=== PATIENT | male | born 1950 | race Caucasian/White ===

== ENCOUNTER 2017-12-16 11:21 | Day surgery (SDC) | payer MEDICARE, OTHER ==
[2017-12-14 14:35] VITALS: BMI 23.6
[~2017-12-16 11:21] MED LIST: LACTATED RINGERS 1,000 ML IV SCH
[2017-12-16 11:50] VITALS: RESP 16; TEMP 98.4
[2017-12-16] MEDS ORDERED: LIDOCAINE 1% INJ 10MG/ML (20 ML MDV) ONE (12:39)
[2017-12-16] MEDS ORDERED: PROPOFOL 10 MG/ML 20 ML VIAL IV ONE (12:39)
--- NOTE | 2017-12-16 13:27 | P.PCN ---
Date of Procedure: 12/16/17 Procedure(s) Performed: Procedures: 1. Esophagogastroduodenoscopy and biopsy. 2. Total colonoscopy. Preoperative diagnosis: Epigastric pain and screening colonoscopy. Postoperative diagnosis: 1. Hiatal hernia and abnormal segment in the distal esophagus that may represent neoplasia, multiple biopsies obtained. 2. Antral gastritis. 3. Left-sided diverticulosis of the colon with no evidence of acute diverticulitis, strictures, significant polyps or cancer. Preparation: HalfLytely prep. Sedation: Was provided by anesthesia. Brief clinical history: The patient is a 67-year-old male who is scheduled for this evaluation because of family history of colon cancer in his father. This would be the patient's first colonoscopy. In addition, he has been experiencing epigastric pain, mostly postprandial, for the last month or so. He may have lost 4 or 5 pounds during that period of time. Does not correlate dysphagia. Denies bleeding. Procedure: With the patient on his left lateral decubitus position and after informed consent and adequate sedation, I passed the Olympus-GIF 160 video upper endoscope through the cricopharyngeus down the esophagus. Around the 32 cm from the incisors and extending for another 5 cm or so, the esophagus appeared abnormal with nodular, friable appearance, almost circumferentially, without impeding the advancement of the endoscope. No obvious ulcerations. The segment terminates at the GE junction then the endoscope is advanced into a 2 cm hiatal hernia and on to the rest of the stomach. The stomach showed some mottling and erythema in the antrum but no other abnormalities including any abnormality and the retroflex view in the cardia. Pyloric channel did not show any ulcers. Duodenal bulb, post bulbar area and descending duodenum showed minimal erythema. I obtained biopsies from the duodenum, antrum and the distal esophagus then the endoscope was withdrawn and I proceeded with the colonoscopy. Perianal area did not show any fissures or fistulas. There were no masses felt on digital rectal examination. The Olympus CFQ 160L video colonoscope was then inserted in the rectum and the usual fashion and advanced to the cecum. There were several diverticular orifices seen scattered on the left side with no evidence of acute diverticulitis or strictures. The mucosa appeared healthy. No polyps or tumors were seen. I retroflexed the endoscope in the rectum before the endoscope was withdrawn. The patient tolerated the procedure well. Plan: I summarized the findings to the patient. Will await biopsy results and make further plans based on his course and biopsy results. I will keep you updated on his progress.
[2017-12-16 13:48] VITALS: BP 114/79; PULSE 68
== END 2017-12-16 14:05 | disposition home or self-care (01) ==
LOC: ORWHC2ENDO 11:21
DX: C15.9 Malignant neoplasm of esophagus, unspecified (principal); K29.50 Unspecified chronic gastritis without bleeding; K44.9 Diaphragmatic hernia without obstruction or gangrene; K29.80 Duodenitis without bleeding; K57.30 Diverticulosis of large intestine without perforation or abscess without bleeding; K21.9 Gastro-esophageal reflux disease without esophagitis; N40.0 Benign prostatic hyperplasia without lower urinary tract symptoms; F17.290 Nicotine dependence, other tobacco product, uncomplicated; Z80.0 Family history of malignant neoplasm of digestive organs; M19.90 Unspecified osteoarthritis, unspecified site; Z79.899 Other long term (current) drug therapy
CPT/HCPCS: 88305; 45378; 43239; J2001; J2704; 88341; 88342

== ENCOUNTER → 2018-01-15 | Outpatient (CLI) | payer MEDICARE, OTHER ==
--- NOTE | 2018-01-17 08:26 | PE ---
EXAMINATION TYPE: PET CT fusion skull to thigh DATE OF EXAM: 01/15/2018 COMPARISON: NONE HISTORY: Esophageal cancer, initial staging study. Positive recent biopsy suspected. TECHNIQUE: Following the intravenous administration of 11.505 mCi of F-18 FDG, whole body images are performed from the skull base to the midthigh. Images are reviewed on the computer in the coronal, axial, and sagittal planes. Reconstructed rotating images are created on independent workstation and reviewed on the computer. A noncontrast CT is performed in conjunction with the PET scan. SCAN: Initial Scan FINDINGS: SKULL BASE AND NECK: No suspicious hypermetabolic uptake is seen. CHEST, MEDIASTINUM, AND HILAR REGION: Corresponding to patient history there is moderate to severe co ncentric wall thickening in the distal esophagus beginning near axial image 101 subcarinal level at l evel of left atrium extending inferiorly almost to level of diaphragmatic hiatus axial image 116, max SUV is. Length of tumor is roughly 5 to 6 cm. There is suspicious adjacent paraesophageal adenopathy , for reference right posterior paraesophageal lymph node measures 1.3 x 0.8 cm axial image 113, no d efinitive abnormal hypermetabolic uptake is present. No additional areas of abnormal hypermetabolic uptake are seen in the thorax. ABDOMEN AND PELVIS: No suspicious hypermetabolic uptake is present. OSSEOUS STRUCTURES: No suspicious hypermetabolic uptake is seen. OTHER CT: There is mild to moderate underlying emphysematous change with scattered bleb formation in the upper lobes. There is dependent atelectasis in the bases. Coronary artery calcification is seen which is noted marker for coronary artery disease. Diverticula are seen most prominent in the sigmoid colon. There is moderate atherosclerotic change of the infrarenal abdominal aorta extending into pelvic bran ch vessels. Prostate gland is enlarged in size bulging on bladder base, underlying BPH is suspected. There are bilateral pars defects L5 level. There is grade 1 anterolisthesis of L5 on S1. Advanced dis c space narrowing at this level is present. There is moderate to severe joint space loss in both hips . There is degenerative change in both shoulders, right worse than left. IMPRESSION: Biopsy-proven malignancy distal esophagus is identified, lesion is completely above diaph ragm. There is nonspecific adjacent prominent but a metabolic lymph node. No metastatic disease is ev ident.
== END | disposition home or self-care (01) ==
LOC: RADPETMAIN 12:24
PROVIDERS: ATTEND Internal Medicine Hematology & Oncology
DX: C15.5 Malignant neoplasm of lower third of esophagus (principal)
CPT/HCPCS: 78815; A9552

== ENCOUNTER → 2018-04-30 | Outpatient (CLI) | payer MEDICARE, OTHER ==
--- NOTE | 2018-05-02 10:16 | PE ---
Nuclear medicine PET/CT HISTORY: Esophageal carcinoma Patient received 13.7 mCi F-18 FDG. Delayed scanning was performed from the skull base to the mid thi ghs. correlation to prior nuclear medicine PET/CT 01/15/2018 Findings: Neck and chest: There is no evident cervical adenopathy. No mediastinal adenopathy. At the level of the distal esophagus at the right lung base medially some mild hypermetabolic uptake is pres ent corresponding to some areas of bronchial wall thickening and consolidation, prominent interstitia l bands, SUV 4.2. Emphysematous changes are present within the right lung which are indeterminate. S cattered foci of groundglass opacity are present within the lungs without associated uptake axial rusty ge 106, 108 in the right middle lobe and right upper lobe. Abdomen pelvis: No suspicious hypermetabolic uptake. No retroperitoneal adenopathy. Osseous structures are within normal limits. Impression: Improvement in abnormal uptake as compared to prior exam. Findings in the right lung base medially could be due to post radiation change, indeterminate foci of groundglass opacity within the right middle and upper lobes were seen on prior exam and are of questionable clinical significance, follow-up recommended.
== END | disposition home or self-care (01) ==
LOC: RADPETMAIN 11:14
PROVIDERS: ATTEND Radiology Radiation Oncology
DX: R91.8 Other nonspecific abnormal finding of lung field (principal); C15.5 Malignant neoplasm of lower third of esophagus; Z92.3 Personal history of irradiation
CPT/HCPCS: 78815; A9552

== ENCOUNTER → 2019-01-10 | Outpatient (CLI) | payer MEDICARE, OTHER ==
[2019-01-10 11:02] LABS: Blood Urea Nitrogen 15 mg/dL (9-20)
--- NOTE | 2019-01-10 14:42 | CT ---
EXAMINATION TYPE: CT ChestAbdPelvis w con DATE OF EXAM: 01/10/2019 COMPARISON: PET CT 04/30/2018 HISTORY: 68-year-old male Follow up esophageal CA TECHNIQUE: Contiguous axial scanning of the chest, abdomen, and pelvis performed with IV Contrast, pa tient injected with 100 mL of Isovue 300. Delayed images through the kidneys were obtained. Coronal/s agittal reconstructions performed. The technologist notes that the patient was unable to bring arms above the head or tolerate full oral prep. CT DLP: 586.1 mGycm Automated exposure control for dose reduction was used. FINDINGS: CHEST: Heart size without pericardial effusion. Coronary vessel calcifications are present and are remarkabl e for coronary artery disease. Aortic root is ectatic at 3.9 cm. Mild atelectatic arch calcifications and conventional arch vessel b ranching anatomy. Descending thoracic aorta is mildly tortuous. Mildly enlarged caliber to the main right and left pulmonary artery is a 2.5 and 2.9 cm, respectively , suggesting underlying pulmonary arterial hypertension. No thoracic lymphadenopathy by CT size criteria. Moderate centrilobular emphysema. No consolidation or pleural effusion. Some mild posterior basilar g roundglass, probably atelectasis. ABDOMEN: Postsurgical changes of esophagectomy and gastric pull-through procedure. No focal liver lesion. Portal venous system is patent. No biliary ductal dilatation. Gallbladder, kidneys, spleen, and pancreas appear within normal limits. Low-density thinning of the bilateral adrenal glands similar to prior. Moderate atherosclerotic calcifications infrarenal abdominal aorta and iliac arteries. Ectatic distal left common iliac artery at 1.6 cm. No dilated small bowel, free fluid, or free air. Oral contrast has progressed to the cecum. There is moderate stool in the ascending colon. Remainder of the colon is relatively collapsed. Mild sigmoid a nd lower descending colonic diverticulosis. No pericolonic inflammatory change. No mesenteric or retroperitoneal lymphadenopathy identified. Pelvis: Bladder is urine distended. Prostate gland is enlarged measuring 5.9 cm wide. No abnormal fluid colle ction in the pelvis or pelvic lymphadenopathy. Bones: Mild degenerative changes of the hips. Degenerative changes left greater than right SI joints. Bilate ral L5 pars defects with grade 2 anterolisthesis at L5-S1. No osseous destructive process. IMPRESSION: 1. Status post esophagectomy with gastric pull-through procedure. No suspicious lymphadenopathy or ma ss to suggest recurrent or metastatic disease. 2. COPD with moderate emphysema. Pulmonary arterial hypertension. 3. Mild distal colonic diverticulosis without evidence for acute diverticulitis. 4. Prostatomegaly (5.9 cm wide). 5. Bilateral L5 pars defects with grade 2 anterolisthesis at L5-S1.
== END ==
LOC: RADCTMAIN 10:20
PROVIDERS: ATTEND Internal Medicine Hematology & Oncology
DX: Z03.89 Encounter for observation for other suspected diseases and conditions ruled out (principal); J43.9 Emphysema, unspecified; I27.21 Secondary pulmonary arterial hypertension; K57.30 Diverticulosis of large intestine without perforation or abscess without bleeding; N40.0 Benign prostatic hyperplasia without lower urinary tract symptoms; M43.17 Spondylolisthesis, lumbosacral region
CPT/HCPCS: 82565; 84520; 71260; 74177; 36415; Q9967

== ENCOUNTER → 2019-05-09 | Outpatient (CLI) | payer MEDICARE, OTHER ==
[2019-05-09 10:58] LABS: African American GFR (CKD) >90 (>60 ml/min/1.73 sqM); Blood Urea Nitrogen 17 mg/dL (9-20)
--- NOTE | 2019-05-09 15:33 | CT ---
EXAMINATION TYPE: CT soft tissue neck w con DATE OF EXAM: 05/09/2019 COMPARISON: 01/10/2019 and 04/30/2018 HISTORY: 68-year-old male Follow up esophageal ca TECHNIQUE: Contiguous axial scanning of the soft tissues of the neck performed with IV Contrast, clint ent injected with 100 mL of Isovue 300. Coronal/sagittal reconstructions performed. CT DLP: 239.7 mGycm Automated exposure control for dose reduction was used. FINDINGS: Visualized intracranial structures, orbits and globes, mastoid air cells appear clear. Scattered mild mucosal thickening ethmoid air cells. Nasopharynx is clear. There is a 1.0 cm rounded nodule within the left lacunar space and smaller 5 mm nodule along the righ t parasagittal vallecular space. Direct visualization is recommended. Otherwise, oropharynx is clear. Epiglottis and prevertebral soft tissues otherwise normal. The glottic and subglottic structures as well as the tracheal column appear clear. Visualized upper lungs dictated separately. The thyroid and submandibular glands are satisfactory. Mild atrophy of the parotid glands. No cervical lymphadenopathy seen. Mild to moderate disc/degenerative change from C4 through C7 levels. IMPRESSION: 1. 1 CM ROUND NODULE WITHIN THE LEFT VALLECULAR SPACE AND SMALLER 5 MM NODULE RIGHT PARASAGITTAL VALL ECULAR SPACE. MUCOSAL RETENTION CYST. DIRECT VISUALIZATION RECOMMENDED TO EXCLUDE MORE AGGRESSIVE MUC OSAL LESIONS. 2. NO CERVICAL LYMPHADENOPATHY OR MASS OTHERWISE SEEN.
--- NOTE | 2019-05-09 15:55 | CT ---
EXAMINATION TYPE: CT ChestAbdPelvis w con DATE OF EXAM: 05/09/2019 COMPARISON: 01/10/2019 HISTORY: 68-year-old male Follow up esophageal ca TECHNIQUE: Contiguous axial scanning of the chest, abdomen, and pelvis performed with IV Contrast, pa tient injected with 100 mL of Isovue 300. Delayed images through the kidneys were obtained. Coronal/s agittal reconstructions performed. CT DLP: 560.9 mGycm Automated exposure control for dose reduction was used. FINDINGS: CHEST: Heart normal size without pericardial effusion. Coronary vessel calcifications are present. Ectatic ascending aorta 3.7 cm. Mild atherosclerotic arch calcifications with conventional arch vesse l branching anatomy. No thoracic lymphadenopathy by CT size criteria. Moderate centrilobular emphysema redemonstrated. No consolidation or pleural effusion. Dependent grou ndglass atelectasis in the posterior lung bases. No enlarging suspicious pulmonary nodules. ABDOMEN: Postsurgical changes of esophagectomy and gastric pull-through procedure. No focal liver lesion or biliary ductal dilatation. Portal venous system is patent. Gallbladder, right adrenal gland, kidneys, spleen, and pancreas appear within normal limits. Similar mild thickening of the left adrenal gland without discrete nodularity. Moderate prostatic calcifications infrarenal abdominal aorta and iliac arteries with ectatic distal l eft common iliac artery 1.9 cm versus 1.8 cm, previously 1 remeasured. No dilated small bowel, free fluid, or free air. No mesenteric or retroperitoneal lymphadenopathy. Diverticulosis along the lower descending and sigmoid colons. Chronic inflammatory change. Pelvis: Bladder is urine distended. Prostate gland is enlarged measuring 5.7 cm wide with heterogeneous enhan cement. No abnormal fluid collection in the pelvis or pelvic lymphadenopathy. Bones: Mild degenerative change at the hips. Degenerative changes left SI joint. Bilateral L5 pars defects w ith grade 2 anterolisthesis at L5-S1 and facet arthropathy lower lumbar spine. No osseous destructive process. IMPRESSION: 1. STATUS POST ESOPHAGECTOMY WITH GASTRIC PULL-THROUGH PROCEDURE. NO SUSPICIOUS LYMPHADENOPATHY OR MA SS TO SUGGEST RECURRENT OR METASTATIC DISEASE. 2. COPD WITH MODERATE EMPHYSEMA. 3. MILD DISTAL COLONIC DIVERTICULOSIS, PROSTATOMEGALY (5.7 CM WIDE), 1.9 CM ECTASIA LEFT COMMON ILIAC ARTERY, AND BILATERAL L5 PARS DEFECTS WITH GRADE 2 ANTEROLISTHESIS L5-S1.
== END | disposition home or self-care (01) ==
LOC: RADCTMAIN 10:09
PROVIDERS: ATTEND Internal Medicine Hematology & Oncology
DX: Z08 Encounter for follow-up examination after completed treatment for malignant neoplasm (principal); R22.1 Localized swelling, mass and lump, neck; K57.30 Diverticulosis of large intestine without perforation or abscess without bleeding; N40.0 Benign prostatic hyperplasia without lower urinary tract symptoms; J43.9 Emphysema, unspecified; I77.89 Other specified disorders of arteries and arterioles; Z90.49 Acquired absence of other specified parts of digestive tract; Z85.01 Personal history of malignant neoplasm of esophagus
CPT/HCPCS: 82565; 84520; 70491; 71260; 74177; 36415; Q9967

== ENCOUNTER → 2020-03-01 | Outpatient (CLI) | payer MEDICARE, OTHER ==
--- NOTE | 2020-03-01 12:23 | CT ---
EXAMINATION TYPE: CT soft tissue neck w con DATE OF EXAM: 03/01/2020 COMPARISON: 05/09/2019 HISTORY: Follow up esophageal cancer CT DLP: 307.5 mGycm CONTRAST: CT scan of the neck is performed with IV Contrast, patient injected with 100 mL of Isovue 300. Contrast enhanced CT of the neck was performed from the skull base through the lung apices. AIRWAY: There is a 1.0 cm rounded nodule within the left vallecula and smaller 5 mm nodule along th e right parasagittal vallecular space. Direct visualization is re commended. Otherwise, oropharynx is clear. The supraglottic, glottic, and subglottic portions of the airway otherwise appear patent and free of mass. SALIVARY GLANDS: The submandibular and parotid glands are free of mass or inflammatory process. THYROID GLAND: No nodules or masses seen. LYMPH NODES: No adenopathy seen greater than 1cm. LUNG APICES: No nodule or mass is seen. OTHER: Decreased attenuation on the last image involving the left frontal lobe. Underlying lesion is difficult to exclude. Consider dedicated contrast enhanced CT of the brain. Vascular structures are patent. Degenerative change of the cervical spine. No abscess seen. IMPRESSION: 1.Decreased attenuation on the last image involving the left frontal lobe. Underlying lesion is diffi cult to exclude. Consider dedicated contrast enhanced CT of the brain. 2. Stable nonspecific vallecular lesions.
--- NOTE | 2020-03-01 12:41 | CT ---
EXAMINATION TYPE: CT ChestAbdPelvis w con DATE OF EXAM: 03/01/2020 COMPARISON: 05/09/2019 HISTORY: follow up esophageal cancer CT DLP: 681.4 mGycm CONTRAST: CT scan of the chest, abdomen and pelvis is performed with Oral Contrast and with IV Contrast, patien t injected with 100 mL of Isovue 300. CT Chest: LUNGS: The lungs are clear and free of infiltrate or atelectasis. Moderate COPD changes. No pulmonar y nodule or mass is detected. No pleural effusion or CT evidence of interstitial lung disease. MEDIASTINUM: Changes of the gastric pull-through procedure and esophagectomy. No evidence for recurr ent mass or obstruction. Thoracic aorta is of normal caliber. The heart is not enlarged. No evidenc e for mediastinal mass or adenopathy. HILAR STRUCTURES: No evidence for mass. No hilar adenopathy is appreciated. OTHER: No significant abnormality. CONTRAST CT ABDOMEN AND PELVIS FINDINGS: LIVER/GB: No calcified gallstones. No space occupying hepatic lesion. Biliary tree is of normal ca liber. PANCREAS: No inflammation. No distinct mass. SPLEEN: No splenic enlargement. No lesion seen. ADRENALS: No nodule. No thickening. KIDNEYS/BLADDER: No hydronephrosis. No nephrolithiasis. No disctinct renal mass. BOWEL: Normal appendix. Normal bowel caliber. No inflammation. Diverticulosis without diverticuliti s. GENITAL ORGANS: Prostate enlargement with calcifications seen. LYMPH NODES: No greater than 1cm abdominal or pelvic lymph nodes are appreciated. AORTA: No significant abnormality. OSSEOUS STRUCTURES: Degenerative changes lumbar spine with grade 1 anterolisthesis L5 on S1 with bila teral spondylolysis. OTHER: No significant additional abnormality is seen. IMPRESSION: 1. Stable postoperative changes of esophagectomy with gastric pull-through. No evidence for metastati c disease or recurrent disease at this time.
== END | disposition home or self-care (01) ==
LOC: RADCTMAIN 09:21
PROVIDERS: ATTEND Internal Medicine Hematology & Oncology
DX: C15.5 Malignant neoplasm of lower third of esophagus (principal); Z90.49 Acquired absence of other specified parts of digestive tract; Z98.890 Other specified postprocedural states
CPT/HCPCS: 36415; 70491; 71260; 74177

== ENCOUNTER → 2020-08-19 | Outpatient (CLI) | payer MEDICARE, OTHER ==
[2020-08-19 08:08] LABS: African American GFR (CKD) >90 (>60 ml/min/1.73 sqM); Blood Urea Nitrogen 14 mg/dL (9-20); Non-African American GFR(CKD) 79 (>60 ml/min/1.73 sqM)
--- NOTE | 2020-08-19 10:29 | CT ---
EXAMINATION TYPE: CT ChestAbdPelvis w con DATE OF EXAM: 08/19/2020 COMPARISON: Prior CT March 01, 2020 and older CTs. Prior PET CTs 2018. HISTORY: Follow up esophageal cancer CT DLP: 1087 mGycm. Automated Exposure Control for Dose Reduction was Utilized. CONTRAST: CT scan of the thorax, abdomen and pelvis is performed with oral and with IV Contrast, patient inject ed with 100 mL of Isovue 300. FINDINGS: LUNGS: [id number] underlying emphysematous change greatest in the upper lungs is redemonstrated . [id number] scattered fibrotic and/or atelectatic changes in the lower lungs is more prominent from prior study with increasing reticulation, perhaps posttreatment change. No new pulmonary nodule s or masses. No pleural effusion or pneumothorax seen. MEDIASTINUM: There are no new greater than 1 cm hilar or mediastinal lymph nodes. No cardiomegaly o r pericardial effusion is seen. A few prominent but subcentimeter thoracic lymph nodes redemonstrated and stable. Surgical changes from esophagectomy and gastric pull-up procedure redemonstrated. Modera te coronary artery calcification redemonstrated. LIVER/GB: Liver remains low dense consistent with diffuse fatty infiltration. PANCREAS: No significant abnormality is seen. SPLEEN: No significant abnormality is seen. ADRENALS: Stable low dense thickening to both adrenal glands consistent with benign lipid rich hyperp lasia. KIDNEYS: No significant abnormality is seen. BOWEL: Oral contrast reaches level of hepatic flexure. Diverticula in the left and sigmoid colon. No CT evidence for acute diverticulitis. No suspicious small or large bowel dilatation. Patient has landry le intra-abdominal fat. GENITAL ORGANS: Enlarged prostate gland consistent with BPH LYMPH NODES: No greater than 1cm abdominal or pelvic lymph nodes are appreciated. OSSEOUS STRUCTURES: Persistent bilateral pars defects with grade 2 anterolisthesis L5 on S1 and moder ate to severe disc space narrowing. OTHER: Mild/moderate plaque of the aorta extends into the iliac branch vessels. IMPRESSION: No new mass or adenopathy to suggest active neoplastic recurrence. Increasing changes in the bases suspected fibrotic change perhaps related to treatment noted from most recent CT otherwise no significant interval change.
== END | disposition home or self-care (01) ==
LOC: RADCTMAIN 07:30
PROVIDERS: ATTEND Internal Medicine Hematology & Oncology
DX: C15.5 Malignant neoplasm of lower third of esophagus (principal)
CPT/HCPCS: 82565; 84520; 71260; 74177; 36415; Q9967

== ENCOUNTER → 2022-05-13 | Outpatient (CLI) | payer MEDICARE, OTHER ==
[2022-05-13 09:36] LABS: African American GFR (CKD) >90 (>60 ml/min/1.73 sqM); Blood Urea Nitrogen 19 mg/dL (9-20); Non-African American GFR(CKD) 88 (>60 ml/min/1.73 sqM)
--- NOTE | 2022-05-15 09:48 | CT ---
EXAMINATION TYPE: CT ChestAbdPelvis w con DATE OF EXAM: 05/13/2022 COMPARISON: 08/19/2020 HISTORY: Follow-up esophageal carcinoma CONTRAST: CT scan of the chest, abdomen and pelvis is performed without Oral Contrast and with IV Contrast, pat ient injected with 100 mL of Isovue 300. CT Chest: LUNGS: The lungs are clear and free of infiltrate or atelectasis. No pulmonary nodule or mass is det ected. Basilar subpleural fibrosis is redemonstrated. Moderate emphysematous changes noted. Scattered areas of infiltrate right middle lobe. MEDIASTINUM: Redemonstrated are changes of esophagectomy gastric pull-through procedure. No tumor re currence is seen with certainty. Thoracic aorta is of normal caliber. The heart is not enlarged. No evidence for mediastinal mass or adenopathy. HILAR STRUCTURES: No evidence for mass. No hilar adenopathy is appreciated. OTHER: No significant abnormality. CONTRAST CT ABDOMEN AND PELVIS FINDINGS: LIVER/GB: No calcified gallstones. No space occupying hepatic lesion. Biliary tree is of normal ca liber. PANCREAS: No inflammation. No distinct mass. SPLEEN: No splenic enlargement. No lesion seen. ADRENALS: No nodule. Bilateral adrenal glandular hyperplasia noted. KIDNEYS/BLADDER: No hydronephrosis. No nephrolithiasis. No distinct renal mass. BOWEL: Normal appendix. Normal bowel caliber. No inflammation. GENITAL ORGANS: Prostatomegaly noted. LYMPH NODES: No greater than 1cm abdominal or pelvic lymph nodes are appreciated. AORTA: Atheromatous and ectatic changes seen of the abdominal aorta without evidence for aneurysm. OSSEOUS STRUCTURES: Scattered degenerative changes of the thoracic and lumbar spine. Grade 2 anteroli sthesis L5 on S1 measuring 1.2 cm. OTHER: No significant additional abnormality is seen. IMPRESSION: 1. Changes of esophagectomy and gastric pull-through procedure without evidence for tumor recurrence or metastatic disease. 2. Moderate emphysematous change and hyperinflation of COPD. Basilar subpleural fibrosis. Couple of f ocal areas of groundglass infiltrate right middle lobe.
== END | disposition home or self-care (01) ==
LOC: RADCTMAIN 08:50
PROVIDERS: ATTEND Internal Medicine Hematology & Oncology
DX: Z03.89 Encounter for observation for other suspected diseases and conditions ruled out (principal); C15.5 Malignant neoplasm of lower third of esophagus
CPT/HCPCS: 82565; 84520; 71260; 74177; 36415; Q9967

== ENCOUNTER → 2023-12-23 | Outpatient (CLI) | payer MEDICARE ==
[2023-12-23 12:07] LABS: African American GFR (CKD) >90 (>60 ml/min/1.73 sqM); Blood Urea Nitrogen 24 mg/dL (9-20); Non-African American GFR(CKD) >90 (>60 ml/min/1.73 sqM)
--- NOTE | 2023-12-24 18:53 | CT ---
EXAMINATION TYPE: CT chest w con CT DLP: 385.0 mGycm, Automated exposure control for dose reduction was used. DATE OF EXAM: 12/23/2023 1:16 PM COMPARISON: CT most recent 05/13/2022 CLINICAL INDICATION:Male, 73 years old with history of C15.5 esophageal ca; PHH, hx of esophageal sx TECHNIQUE: Multiple axial images were obtained through the chest. Sagittal and coronal reformats were created for review. Contrast used:100ml mL of Isovue 300 with IV Contrast (None if empty) Oral contrast used: (None if empty) FINDINGS: LUNGS/ PLEURA: Moderate to severe emphysema changes throughout the lungs. Right middle lobe articulat ion seems stable. No focal consolidation, pneumothorax or pleural effusion. Basilar reticulation pres ent throughout the lungs bilaterally. AIRWAY: Patent and unremarkable. HEART: Size within normal limits. MEDIASTINUM: Post surgical changes with esophagectomy with gastric pull-through. VASCULATURE: No aortic aneurysm. Stable lymph nodes in the right low paratracheal station measuring up to 10 mm. MUSCULOSKELETAL: No acute osseous abnormalities SOFT TISSUES/LYMPH NODES: Unremarkable. LOWER NECK: No significant findings. UPPER ABDOMEN: No significant findings. IMPRESSION: 1. No evidence for enlarging mass or new concerning lymphadenopathy. No finding to suggest recurrenc e at this time. 2. Moderate emphysema changes
== END | disposition home or self-care (01) ==
LOC: RADCTMAIN 10:55
PROVIDERS: ATTEND Internal Medicine Hematology & Oncology
DX: C15.5 Malignant neoplasm of lower third of esophagus (principal); J43.9 Emphysema, unspecified; D51.9 Vitamin B12 deficiency anemia, unspecified; E61.1 Iron deficiency
CPT/HCPCS: 82565; 84520; 71260; 36415; Q9967